=== PATIENT | male | born 1980 ===

== ENCOUNTER 2018-10-08 16:23 | Emergency (ER) | payer OTHER ==
[2018-10-08 17:06] VITALS: RESP 18
[2018-10-08] MEDS ORDERED: Sodium Chloride 0.9% 1,000 ML IV ONE (17:24)
[2018-10-08] MEDS ORDERED: Iohexol 240 (50 ml) PO ONE (17:24)
--- NOTE | 2018-10-08 17:27 | ED PDOC ---
HPI: Abdomen Time Seen by Provider: 10/08/18 17:08 Chief Complaint (Nursing): Abdominal Pain Chief Complaint (Provider): Abdominal pain History Per: Patient History/Exam Limitations: no limitations Onset/Duration Of Symptoms: Days (6x days) Current Symptoms Are (Timing): Still Present Severity: Moderate Location Of Pain/Discomfort: LLQ Associated Symptoms: Constipation. denies: Nausea, Vomiting, Diarrhea, Urinary Symptoms Additional Complaint(s): 38 year old male with no pertinent past medical history presents to the ED for an evaluation of left lower quadrant abdominal pain that started 5x days ago. Patient reports having associated intermittent constipation. Patient denies having hematuria, dysuria, nausea, vomiting, diarrhea, or trauma to the area. PMD: None provided. Past Medical History Reviewed: Historical Data, Nursing Documentation, Vital Signs Vital Signs: Last Vital Signs Temp 98.8 F 10/08/18 17:03 Pulse 86 10/08/18 17:03 Resp 18 10/08/18 17:03 BP 137/80 10/08/18 17:03 Pulse Ox 97 10/08/18 17:03 CINDY Report Viewed: Yes - Medical History PMH: Hyperlipidemia - Surgical History Surgical History: No Surg Hx - Family History Family History: States: No Known Family Hx - Social History Current smoker - smoking cessation education provided: No Alcohol: Occasional Drugs: Denies - Immunization History Hx Influenza Vaccination: No - Home Medications Home Medications: Ambulatory Orders Medication Instructions Recorded Ibuprofen [Motrin] 400 mg PO BID #20 tab 10/08/18 - Allergies Allergies/Adverse Reactions: Allergies Allergy/AdvReac Type Severity Reaction Status Date / Time No Known Allergies Allergy Verified 10/08/18 17:06 Review of Systems ROS Statement: Except As Marked, All Systems Reviewed And Found Negative Gastrointestinal: Positive for: Abdominal Pain (left lower quadrant), Constipation. Negative for: Nausea, Vomiting, Diarrhea Genitourinary Male: Negative for: Dysuria, Hematuria Physical Exam - Reviewed Nursing Documentation Reviewed: Yes Vital Signs Reviewed: Yes - Physical Exam Appears: Positive for: Well, Non-toxic, No Acute Distress Head Exam: Positive for: ATRAUMATIC, NORMOCEPHALIC Skin: Positive for: Normal Color, Warm, Dry. Negative for: Diaphoresis, Pallor, Rash Eye Exam: Positive for: Normal appearance ENT: Positive for: Normal ENT Inspection Neck: Positive for: Normal, Painless ROM, Supple. Negative for: Decreased ROM Cardiovascular/Chest: Positive for: Regular Rate, Rhythm Respiratory: Positive for: Normal Breath Sounds Gastrointestinal/Abdominal: Positive for: Bowel Sounds (active and normal in all four quadrants), Soft, Tenderness (mild tenderness to palpation of left lower quadrant), Other ((-) Mcburneys point tenderness, (-) ellis sign, (-) dusty sign, (-) rovsing sign). Negative for: Guarding, Rebound Neurologic/Psych: Positive for: Alert, Oriented (3x) - Laboratory Results Result Diagrams: 10/08/18 17:52 10/08/18 17:52 - ECG O2 Sat by Pulse Oximetry: 97 (RA) Pulse Ox Interpretation: Normal Medical Decision Making Medical Decision Makin:08 Initial impression: 38 year old male with abdominal pain Initial plan: * CT abd and pelvis w/ PO and IV contrast * CMP * lipase * CBC with diff * urinalysis * IV NS 1,000 ml IV 1,000 mls/hr * omnipaque 240 50 ml PO once * reevaluation On re-eval, pt is resting comfortably; CT of Abdomen and Pelvis indicate enteritis of the terminal ilieum and is suspicious for Crohn's disease. The patient was informed of these results and questions were respoinded to. Scribe Attestation: Documented byCarrie Cantrell, acting as a scribe for El Buckley PA-C. Provider Scribe Attestation: All medical record entries made by the Scribe were at my direction and personally dictated by me. I have reviewed the chart and agree that the record accurately reflects my personal performance of the history, physical exam, medical decision making, and the department course for this patient. I have also personally directed, reviewed, and agree with the discharge instructions and disposition. Disposition - Clinical Impression Clinical Impression: Regional enteritis (Crohn's disease) - Patient ED Disposition Is Patient to be Admitted: No Doctor Will See Patient In The: Office Counseled Patient/Family Regarding: Diagnosis, Need For Followup, Rx Given - Disposition Referrals: Jameson Prieto MD [Staff Provider] - Disposition: Routine/Home Disposition Time: 23:33 Condition: STABLE Additional Instructions: You are being referred to a GI specialist to rule out the possibility of Crohn's Disease (regional enteritis) identified in the Emergency Room. Please make an appointmnet Prescriptions: Ibuprofen [Motrin] 400 mg PO BID #20 tab Instructions: Crohn's Disease in Adults, Crohn's Disease (DC), Crohn's Disease Diet Forms: [employer] (Stateless), [employer] (Czech) Print Language: BRAZILIAN
[2018-10-08] MEDS ORDERED: Iohexol 240 (50 ml) ONE (18:11)
[2018-10-08 18:20] LABS: BASO % 0.8 % (0.0-2.0); EOS % 0.3 % (0.0-4.0); HEMOGLOBIN 15.5 g/dL (12.0-18.0); LYMPH # 1.2 K/uL (1.0-4.3); LYMPH % 21.2 % (20.0-40.0); MEAN CELL VOLUME 92.1 fl (80.0-94.0); MEAN CORPUSCULAR HEMOGLOBIN 31.6 pg (27.0-31.0); MEAN CORPUSCULAR HGB CONC 34.3 g/dL (33.0-37.0); MEAN PLATELET VOLUME 9.2 fl (7.2-11.7); MONO # 0.3 K/uL (0.0-0.8); NEUT # 3.9 K/uL (1.8-7.0); NEUT % 71.7 % (50.0-75.0); RBC 4.91 Mil/uL (4.40-5.90); RED CELL DISTRIBUTION WIDTH 12.3 % (11.5-14.5); WHITE BLOOD COUNT 5.5 K/uL (4.8-10.8)
[2018-10-08 18:27] LABS: ALB/GLOB RATIO 1.2 (1.0-2.1); ALBUMIN 4.5 g/dL (3.5-5.0); ALT/SGPT 38 U/L (21-72); AST/SGOT 41 U/L (17-59); BLOOD UREA NITROGEN 20 mg/dl (9-20); CALCIUM 9.4 mg/dL (8.4-10.2); GFR NON-AFRICAN AMERICAN > 60; LIPASE 178 U/L (23-300)
[2018-10-08 21:37] LABS: SQUAMOUS EPITHIAL < 1 /hpf (0-5); URINE BILIRUBIN NEGATIVE (NEGATIVE); URINE BLOOD NEGATIVE (NEGATIVE); URINE CLARITY CLEAR (Clear); URINE COLOR YELLOW (YELLOW); URINE GLUCOSE (UA) NEG (NEGATIVE); URINE LEUKOCYTE ESTERASE NEG Leu/uL (Negative); URINE PROTEIN NEGATIVE (NEGATIVE); URINE UROBILINOGEN 0.2-1.0 mg/dL (0.2-1.0)
[2018-10-08] MEDS ORDERED: Iohexol 300 100 ML IJ ONE (22:02)
[2018-10-08 22:51] VITALS: BP 133/75; PULSE 72; TEMP 98.6
[2018-10-08 23:32] VITALS: O2SAT 97
--- NOTE | 2018-10-09 14:04 | CT ---
Date of service: 10/08/2018 PROCEDURE: CT Abdomen and Pelvis with contrast HISTORY: r/o acute abdomen COMPARISON: None. TECHNIQUE: Following oral and intravenous contrast administration, a CT examination of the abdomen and pelvis was performed from the domes of the diaphragms to the symphysis pubis with reformatted datasets provided not only axial but also sagittal and coronal series. Contrast dose: Omnipaque 300, 100 cc Radiation dose: Total exam DLP = 555.27 mGy-cm. This CT exam was performed using one or more of the following dose reduction techniques: Automated exposure control, adjustment of the mA and/or kV according to patient size, and/or use of iterative reconstruction technique. FINDINGS: LOWER THORAX: Upper limits normal cardiac size. Small hiatal hernia encountered. No infiltrate or effusions. LIVER: The junction of the medial right and hepatic lobes is anterior heterogeneous enhancing lesion measuring at least 3.8 x 2.4 cm possibly compatible with a benign hemangioma. The remainder of the liver is unremarkable. No intrahepatic biliary dilatation identified. GALLBLADDER AND BILE DUCTS: Unremarkable. PANCREAS: Unremarkable. No gross lesion or ductal dilatation. SPLEEN: Unremarkable. ADRENALS: Unremarkable. No mass. KIDNEYS AND URETERS: Unremarkable. No hydronephrosis. No solid mass. VASCULATURE: Unremarkable. No aortic aneurysm. No aortic atherosclerotic calcification or mural plaque present. BOWEL: Unremarkable. No obstruction. No gross mural thickening. APPENDIX: Normal appendix. PERITONEUM: Unremarkable. No free fluid. No free air. LYMPH NODES: Unremarkable. No enlarged lymph nodes. BLADDER: The bladder is distended but otherwise appears unremarkable. REPRODUCTIVE: Prostate gland appears upper limits normal size. BONES: No acute fracture. OTHER FINDINGS: There is a 3.1 x 1.9 cm ovoid density overlying the inferior right psoas muscle in the right hemipelvis and lateral to the dome of the bladder to the right measuring 41 Hounsfield units. It appears well circumscribed. This may represent a complex cyst or solid nodule. No fatty hilum is appreciate that would define and enlarged lymph node though lymph node is still not excluded, which would be pathologically enlarged. Consider mesenteric mass, lymphoma, chronic hematoma, complex seroma, post infectious cystic collection with neoplasm not favored but not completely excluded. No additional potential lymphadenopathy throughout the abdomen or pelvis. IMPRESSION: 1. 3.8 cm heterogeneous enhancing lesion at the anterior liver at the junction of the medial right and left lobes suspicious for probable benign hemangioma. Confirmation by MRI is advised without contrast. 2. 3.1 cm ovoid density overlying right psoas muscle in the right hemipelvis indeterminate origin. Differential diagnosis is complex cystic lesion versus poorly enhancing mass, somewhat more detailed above. Consider tissue diagnosis via laparoscopic excisional biopsy rather than CT-guided needle biopsy due to the possibility of drainage of contents into the peritoneal cavity if this is a complex cyst if needle biopsy is performed. PA review assigned. Findings reviewed and discussed with GUS Sinha with written down and read back verification 10/09/2018 12:40 p.m..
== END 2018-10-08 23:55 | disposition home or self-care (01) ==
LOC: H.ER 16:23
DX: K50.90 Crohn's disease, unspecified, without complications (principal); E78.5 Hyperlipidemia, unspecified
CPT/HCPCS: 74177; 80053; 81003; 83690; 85025; 96361; 96374; 99283; J1885; J7030; Q9966; Q9967

== ENCOUNTER 2018-12-13 10:31 | Day surgery (SDC) | payer SELFPAY ==
[2018-12-04 12:01] VITALS: BMI 28.9
[2018-12-13 11:31] LABS: BASO % 1.3 % (0.0-2.0); EOS % 1.3 % (0.0-4.0); HEMOGLOBIN 15.7 g/dL (12.0-18.0); LYMPH # 1.3 K/uL (1.0-4.3); LYMPH % 34.8 % (20.0-40.0); MEAN CELL VOLUME 91.8 fl (80.0-94.0); MEAN CORPUSCULAR HEMOGLOBIN 31.6 pg (27.0-31.0); MEAN CORPUSCULAR HGB CONC 34.5 g/dL (33.0-37.0); MEAN PLATELET VOLUME 9.2 fl (7.2-11.7); MONO # 0.3 K/uL (0.0-0.8); MONO % 7.4 % (0.0-10.0); NEUT # 2.1 K/uL (1.8-7.0); NEUT % 55.2 % (50.0-75.0); NRBC % 0.3 % (0.0-0.0); RBC 4.96 Mil/uL (4.40-5.90); RED CELL DISTRIBUTION WIDTH 12.3 % (11.5-14.5); WHITE BLOOD COUNT 3.7 K/uL (4.8-10.8)
[2018-12-13 11:40] LABS: ALB/GLOB RATIO 1.3 (1.0-2.1); ALBUMIN 4.3 g/dL (3.5-5.0); ALT/SGPT 50 U/L (21-72); AST/SGOT 34 U/L (17-59); BLOOD UREA NITROGEN 15 mg/dl (9-20); CALCIUM 8.6 mg/dL (8.4-10.2); GFR NON-AFRICAN AMERICAN > 60
[2018-12-13] MEDS ORDERED: Lactated Ringer's 1,000 ML IV ONE ×2 (11:45→14:00)
[2018-12-13] MEDS ORDERED: Rocuronium 10 mg/ml (5 ml) ONE (12:18)
[2018-12-13] MEDS ORDERED: Midazolam 2 MG/2 ML VIAL ONE (12:18)
[2018-12-13] MEDS ORDERED: Propofol 10 mg/ml Inj (20 ML) ONE (12:18)
[2018-12-13] MEDS ORDERED: Lidocaine 4% (Laryng-O-Jet) Kit MM ONE (12:19)
[2018-12-13] MEDS ORDERED: Succinylcholine Chloride 20 mg/ml Syr (5 ml) IV ONE (12:19)
[2018-12-13] MEDS ORDERED: Neostigmine 1:1000 (1 mg/ml) Inj ONE (13:46)
[2018-12-13] MEDS ORDERED: Lactated Ringer's 1,000 ML IV SCH (14:45)
[2018-12-13] MEDS ORDERED: HYDROmorphone 0.5 mg/0.5 ml ISec ONE (14:47)
[2018-12-13] MEDS: HYDROmorphone 0.5 mg/0.5 ml ISec IVP PRN ×2 (14:50→15:10)
[2018-12-13] MEDS ORDERED: Oxycodone/Acetaminophen 5/325 mg Tab PO PRN (15:12)
--- NOTE | 2018-12-13 15:22 | CP.SDSHP ---
Same Day Surgery [facility] & P - Allergies Allergies: Allergies No Known Allergies Allergy (Verified 12/13/18 11:31) - Current Medications Current Medications: Home Medication List Medication Instructions Recorded Confirmed Type oxyCODONE/Acetaminophen [Percocet 1 tab PO Q4 PRN #20 tab 12/13/18 Rx 5/325 mg Tab] - Physical Exam Vital Signs: Vital Signs 12/13/18 12/13/18 12/13/18 11:29 11:38 14:37 Temperature 98.7 F 98.0 F Pulse Rate 69 69 66 Respiratory 18 16 Rate Blood Pressure 118/68 149/53 L O2 Sat by Pulse 99 99 Oximetry 12/13/18 12/13/18 14:50 15:05 Temperature 97.1 F L 97.3 F L Pulse Rate 63 64 Respiratory 19 19 Rate Blood Pressure 135/81 135/79 O2 Sat by Pulse 100 100 Oximetry Short Stay Discharge - Short Stay Discharge Admitting Diagnosis/Reason for Visit: C18.1 Disposition: HOME/ ROUTINE Medications: oxyCODONE/Acetaminophen [Percocet 5/325 mg Tab] 1 tab PO Q4 PRN #20 tab PRN Reason: Pain, Moderate (4-7) Referrals: Jocy Boswell MD [Primary Care Provider] - Follow-up: please follow up in Dr. Herndon office within 7-10 days after surgery. Please call to make an appointment. Additional Instructions (Diet, Activity): Please follow up with Dr. Ruiz in her office within 7-10 days You may shower 48 hours after surgery, please do not scrub incisions. No tubs pools or soaking for 2 weeks after surgery. you have been given a prescription medication for pain as needed, please do not drive while taking this medication or make important decisions as you may be impaired. Please do not take more than the prescribed dose. If you have any new concerning symptoms please return to the emergency room immediately for further evaluation.
[2018-12-13 16:15] VITALS: RESP 18
[2018-12-13] MEDS ORDERED: Oxycodone/Acetaminophen 5/325 mg Tab PO ONE (17:05)
--- NOTE | 2018-12-13 17:06 | PCM.SURG1 ---
Surgeon's Initial Post Op Note - Surgeon's Notes Surgeon: Tasneem Ruiz Mailing Machine Helper: Prabhjot Choudhary Type of Anesthesia: General Endo Anesthesia Administered By: Cori Elias Pre-Operative Diagnosis: Pelvic mass Operative Findings: Undescended, intra-abdominal testicle Post-Operative Diagnosis: Intra abdominal undescended right testicle Operation Performed: Laparoscopic right orchiectomy Specimen/Specimens Removed: Testicle (sent for frozen section confirmation) Estimated Blood Loss: EBL {In ML}: 10 Blood Products Given: N/A Drains Used: No Drains Post-Op Condition: Good Date of Surgery/Procedure: 12/13/18 Time of Surgery/Procedure: 14:30
[2018-12-13 17:10] VITALS: BP 137/76; PULSE 72; TEMP 97.8; O2SAT 99
--- NOTE | 2018-12-14 02:33 | OP ---
PROCEDURE DATE: 12/13/2018 SURGEON: Rajeev Ruiz MD ELECTRIC WELDER: Dr. Choudhary. ANESTHESIA: General. NP: Dr. Elias. PREOPERATIVE DIAGNOSIS: Right pelvic mass. POSTOPERATIVE DIAGNOSIS: Intraabdominal right testicle. PROCEDURE: Laparoscopy and laparoscopic right orchiectomy. DESCRIPTION OF OPERATION: With the patient in the supine position under adequate general anesthesia, the abdomen was prepped and draped in the usual sterile manner. Veress needle puncture was performed at the umbilicus with insufflation to 15 cm water pressure of CO2, and a 10-mm laparoscopic trocar was inserted via an infraumbilical incision. Under direct vision 5 mm and 12 mm trocars were placed in the left lower quadrant. The patient was positioned in a Trendelenburg position, allowing visualization of the right iliac fossa. The cecum and appendix were visualized, and appeared normal and laying just beneath the appendix fixed to the lateral pelvic sidewall and adjacent to the internal inguinal ring, was a slightly bluish soft mass which on examination appeared to be an undescended intra-abdominal right testicle. This was relatively mobile, and the mass was grasped, and the overlying thin peritoneal covering was divided circumferentially using a harmonic scalpel. The gonadal vessel was noted entering the entering the mass, and this was triply clipped and divided and the vas deferens was similarly identified and dissected and was then triply clipped and divided. The epididymis was noted adjacent to the testicle. The dissection was completed and the testicle was completely freed from the pelvic sidewall. It was placed in a specimen retrieval bag and removed via the 12 mm port site. It was noted to be soft with no evidence of malignancy. However, it was sent for pathologic examination to confirm the identification of the mass as testicle, and gross examination by pathology also did not reveal any abnormalities. The right lower quadrant was examined again for hemostasis, and the pneumoperitoneum was released and the trocars were removed. The umbilical and 12-mm port sites were closed with [id number] fascial sutures of 0 Vicryl. All incisions were closed with 4-0 Monocryl subcuticular sutures and Dermabond. The scrotum was examined at the completion of the procedure, and it was noted that in fact the right testicle was not present within the scrotum. The patient tolerated the procedure well and transferred to recovery room in stable condition. Estimated blood loss for the procedure was 10 mL. Rajeev Ruiz MD
== END 2018-12-13 18:00 | disposition home or self-care (01) ==
LOC: H.OPSURG 10:31
PROVIDERS: ATTEND Specialist
DX: R19.09 Other intra-abdominal and pelvic swelling, mass and lump (principal)
CPT/HCPCS: 36415; 54690; 80053; 85025; 86850; 86900; 88309; J0690; J1170; J2001; J2250; J2704; J2710; J3010; J7120